=== PATIENT | female | born 1995 | race Caucasian/White ===

== ENCOUNTER 2020-04-17 05:28 | Inpatient (IN) ==
[2020-04-17] MEDS ORDERED: ceFAZolin 2,000 MG in PREMIX 1 EACH IV ONE (05:41)
[2020-04-17] MEDS ORDERED: FAMOTIDINE 20 MG/2 ML VIAL IV ONE (05:41)
[2020-04-17] MEDS ORDERED: CITRIC ACID/SODIUM CITRATE 30 ML UDCUP PO ONE (05:41)
[2020-04-17] MEDS ORDERED: OXYTOCIN/LR 20 UNIT/1,000 ML BAG IV ONE ×3 (05:43→08:24)
[2020-04-17] MEDS ORDERED: LACTATED RINGERS 1,000 ML IV SCH (06:00)
[2020-04-17 06:20] LABS: Basophils # 0.1 10*3/uL (0.0-0.2); Basophils % 0.5 % (0.0-0.8); Eosinophils # 0.1 10*3/uL (0.0-0.87); Eosinophils % 0.8 % (0.00-10.9); Hematocrit 38.7 VOL% (35.7-47.0); Hemoglobin 13.2 GM/DL (12.0-16.0); Immature Granulocytes % 1.6 %; Immature Granulocytes Absolute 0.16 #; Lymphocytes # 2.5 10*3/uL (1.4-4.0); Lymphocytes % 24.9 % (21.3-54.2); Mean Corpuscular HGB Conc 34.1 GM/DL (32-36); Mean Corpuscular Volume 88.6 FL (87-102); Mean Platelet Volume 10.1 FL (9.6-12.0); Monocytes % 6.2 % (1.7-12.7); Platelet Count 424 T/CUMM (130-400); Red Blood Count 4.37 MC/CUMM (3.8-5.5); Red Cell Distribution Width 12.9 % (9.3-17.3)
[2020-04-17 06:43] LABS: Albumin 2.6 G/DL (3.4-5.0); Bilirubin,Total 0.6 MG/DL (0.2-1.0); Calcium 9.5 MG/DL (8.5-10.1); Osmolality,Calculated 276.5 MOS/KG (273-304); Potassium 4.3 MMOL/L (3.5-5.1); Total Protein 7.1 G/DL (6.4-8.3)
[2020-04-17] MEDS ORDERED: TRANEXAMIC ACID 1,000 MG/10 ML VIAL ONE (06:55)
[2020-04-17] MEDS ORDERED: miSOPROStoL 200 MCG TABLET ONE (06:55)
[2020-04-17] MEDS ORDERED: METHYLERGONOVINE 0.2 MG/1 ML AMP ONE (06:56)
[2020-04-17] MEDS ORDERED: CARBOPROST TROMETHAMINE 250 MCG/ML AMP IM ONE (06:56)
[2020-04-17] MEDS ORDERED: MORPHINE 10 MG/10 ML VIAL ONE (06:59)
[2020-04-17] MEDS ORDERED: BUPIVACAINE SPINAL 0.75% 2 ML AMP SPINAL ONE (06:59)
[2020-04-17] MEDS ORDERED: fentaNYL 100 MCG/2 ML VIAL ONE (06:59)
[2020-04-17] MEDS ORDERED: ONDANSETRON 4 MG/2 ML VIAL ONE (07:01)
[2020-04-17 07:13] LABS: INR 0.9; PT Patient Result 9.4 SECS (9.8-11.9); Partial Thromboplastin Time 30.9 SECS (23.9-33.8)
[2020-04-17] MEDS ORDERED: LACTATED RINGERS 1,000 ML IV ONE (07:59)
[2020-04-17] MEDS ORDERED: PHENYLEPHRINE 1 MG/10 ML SYRINGE IV ONE (07:59)
[2020-04-17] MEDS ORDERED: ACETAMINOPHEN 1,000 MG/100 ML VIAL IV ONE (08:00)
[2020-04-17 08:01] LABS: Cord Arterial Blood HCO3 16.5 MMOL/L
[2020-04-17 08:02] LABS: Cord Venous Blood HCO3 18.5 MMOL/L; Cord Venous Blood PCO2 41.8 MMHG; Cord Venous Blood PO2 23.4 MMHG
[2020-04-17 08:07] LABS: Bacteria,Urine Occasional /HPF (Few); Bilirubin,Urine Negative (Negative); Blood, Urine Negative (Negative); Glucose,Urine (UA) Negative (Negative); Ketones,Urine Negative (Negative); Mucus,Urine Occasional /LPF (Occasional); Nitrite,Urine Negative (Negative); Protein,Urine Negative; RBC,Urine <1 /HPF (0-4); Squamous Epithelial Cell,Urine Occasional /HPF (0-10); Urine Appearance CLEAR (Clear); Urine Color Straw (Yellow); Urine Specific Gravity 1.008 (1.001-1.035); Urine Urobilinogen < 2.0 EU/DL (0.2-1.0); WBC,Urine <1 /HPF (0-6)
[2020-04-17] MEDS ORDERED: BUPIVACAINE MPF 0.25% 30 ML VIAL ONE (08:09)
[2020-04-17] MEDS ORDERED: BENZOCAINE 20%/MENTHOL 0.5% SPRAY 56 GM CAN TOP PRN (08:24)
[2020-04-17] MEDS ORDERED: HYDROCORTISONE 2.5% RECTAL CREAM 30 GM TUBE TOP PRN (08:24)
[2020-04-17] MEDS ORDERED: WITCH HAZEL PADS 100/JAR TOP PRN (08:24)
[2020-04-17] MEDS ORDERED: oxyCODONE/ACETAMINOPHEN 5-325 MG TABLET PO PRN (08:24)
[2020-04-17] MEDS ORDERED: RHO(D) IMMUNE GLOBULIN 300 MCG SYRINGE IM ONE (08:24)
[2020-04-17] MEDS ORDERED: MEASLES/MUMPS/RUBELLA VACCINE 0.5 ML VIAL SUBCUT ONE (08:24)
[2020-04-17] MEDS ORDERED: ACETAMINOPHEN 325 MG TABLET PO PRN (08:24)
[2020-04-17] MEDS ORDERED: DIPH/TET/ACEL PERT BOOSTER VACCINE 0.5 ML VIAL IM ONE (08:24)
[2020-04-17] MEDS ORDERED: BISACODYL 10 MG SUPP RECTAL PRN (08:24)
[2020-04-17] MEDS ORDERED: LANOLIN 50% CREAM 0.3 OZ TUBE TOP PRN (08:24)
[2020-04-17] MEDS ORDERED: HYDROmorphone 2 MG/1 ML VIAL IV PRN (10:36)
[2020-04-17] MEDS: ONDANSETRON 4 MG/2 ML VIAL IV PRN (12:45)
[2020-04-17] MEDS: ceFAZolin 1,000 MG in SYRINGE 1 EACH IV SCH (16:44)
[2020-04-17] MEDS: oxyCODONE/ACETAMINOPHEN 5-325 MG TABLET PO PRN (18:24)
[2020-04-17] MEDS: DOCUSATE SODIUM 100 MG CAPSULE PO SCH (20:54)
[2020-04-17] MEDS: IBUPROFEN 800 MG TABLET PO PRN (22:22)
[2020-04-18] MEDS: ceFAZolin 1,000 MG in SYRINGE 1 EACH IV SCH ×2 (00:02→13:11)
[2020-04-18] MEDS: IBUPROFEN 800 MG TABLET PO PRN ×3 (03:54→18:25)
[2020-04-18] MEDS: ONDANSETRON 4 MG/2 ML VIAL IV PRN (05:45)
[2020-04-18] MEDS: oxyCODONE/ACETAMINOPHEN 5-325 MG TABLET PO PRN ×3 (06:13→20:04)
[2020-04-18 07:38] LABS: Basophils % 0.3 % (0.0-0.8); Eosinophils # 0.1 10*3/uL (0.0-0.87); Eosinophils % 0.4 % (0.00-10.9); Hematocrit 34.2 VOL% (35.7-47.0); Hemoglobin 11.6 GM/DL (12.0-16.0); Immature Granulocytes % 0.8 %; Immature Granulocytes Absolute 0.11 #; Lymphocytes # 1.8 10*3/uL (1.4-4.0); Lymphocytes % 13.3 % (21.3-54.2); Mean Corpuscular HGB Conc 33.9 GM/DL (32-36); Mean Corpuscular Volume 88.4 FL (87-102); Mean Platelet Volume 9.7 FL (9.6-12.0); Monocytes % 5.5 % (1.7-12.7); Neutrophils % 79.7 % (38.7-73.9); Platelet Count 319 T/CUMM (130-400); Red Blood Count 3.87 MC/CUMM (3.8-5.5); Red Cell Distribution Width 13.2 % (9.3-17.3); White Blood Count 13.3 T/CUMM (4-12)
[2020-04-18] MEDS: DOCUSATE SODIUM 100 MG CAPSULE PO SCH ×3 (08:51→20:04)
[2020-04-18] MEDS: MAGNESIUM HYDROXIDE SUSP 30 ML UDCUP PO PRN ×2 (09:54→20:04)
[2020-04-18] MEDS: SIMETHICONE CHEW 80 MG TABLET PO PRN (20:05)
[2020-04-19] MEDS ORDERED: HydrOXYzine PAMOATE 25 MG CAPSULE PO PRN (01:04)
[2020-04-19] MEDS: IBUPROFEN 800 MG TABLET PO PRN ×2 (01:05→09:24)
[2020-04-19] MEDS: oxyCODONE/ACETAMINOPHEN 5-325 MG TABLET PO PRN ×2 (03:49→09:23)
[2020-04-19 08:20] VITALS: BP 119/65
[2020-04-19] MEDS: SIMETHICONE CHEW 80 MG TABLET PO PRN (09:21)
[2020-04-19] MEDS: DOCUSATE SODIUM 100 MG CAPSULE PO SCH (09:21)
== END 2020-04-19 11:50 | disposition home or self-care (01) | DRG 787 ==
LOC: N.LD 05:28 → N.OB 12:33
PROVIDERS: ADMIT Specialist; ATTEND Specialist
PROC: LDCSECT (ICD-10-PCS; 2020-04-17 07:02)